=== PATIENT | female | born 1990 | race Caucasian/White ===

== ENCOUNTER 2016-09-10 13:19 | Emergency (ER) | payer OTHER ==
[~2016-09-10] VITALS: Ht 160 cm; Wt 88.1 kg
[~2016-09-10 13:19] MED LIST: AMOXICILLIN500 MG PO; BACTRIM,SEPT1 TABLET PO; ENDOCET 5-3251 EACH PO; FLUOXETINE HCL20 MG PO; IBUPROFEN200 M1 PO; IBUPROFEN800 MG PO; MACRODANTIN100 MG PO; NOHOMEMEDS; OXCARBAZEPINE300 MG PO; PRENATAL TABLE1 EAC3 PO; VALTREX1000 MG PO; ZOFRAN ODT8 MG PO
[2016-09-10 15:15] VITALS: BP 125/92
== END 2016-09-10 15:16 | disposition home or self-care (01) ==
LOC: RME 13:19 → EME 13:19 → RME 15:16
DX: Z11.1 Encounter for screening for respiratory tuberculosis (principal)
CPT/HCPCS: 99281; 99284

== ENCOUNTER 2017-03-21 11:27 | Inpatient (IN) | payer OTHER ==
[~2017-03-21] VITALS: Ht 162.6 cm; Wt 80.8 kg
[2017-03-21 12:47] LABS: BASOPHIL (%) 0.5 % (0-1); BASOPHIL COUNT 0.1 K/uL (0-0.1); EOSINOPHIL (%) 1.3 % (0-5); EOSINOPHIL COUNT 0.1 K/uL (0-0.3); HEMATOCRIT 43.3 % (36.0-46.0); HEMOGLOBIN 14.4 G/DL (11.9-15.5); IMMATURE GRANULOCYTE (%) 0.6 % (0.0-0.7); LYMPHOCYTE (%) 24.1 % (15-42); LYMPHOCYTE COUNT 2.6 K/uL (1.0-2.8); MCH 28.1 PG (29.0-34.0); MCHC 33.3 G/DL (30.0-36.0); MCV 84.4 FL (83-99); MONOCYTE (%) 7.5 % (3-12); MONOCYTE COUNT 0.8 K/uL (0-0.8); NEUTROPHIL COUNT 7.2 K/uL (1.8-6.4); PLATELET COUNT 269 K/uL (156-360); RBC DIS.WIDTH-CV 14.3 % (11.8-14.6); RBC DIS.WIDTH-SD 44.2 % (39-53); RED BLOOD COUNT 5.13 M/uL (3.80-5.20); WHITE BLOOD COUNT 10.9 K/uL (4.1-10.2)
[2017-03-21 12:55] LABS: ALBUMIN 4.4 g/dL (3.2-4.8); CHLORIDE 109 mEq/L (99-109); POTASSIUM 5.1 mEq/L (3.7-5.4); SODIUM 138 mEq/L (136-147)
[2017-03-21 12:58] LABS: GLUCOSE 103 mg/dL (70-99); TOTAL PROTEIN 7.7 g/dL (6.4-8.3)
[2017-03-21 13:00] LABS: TOTAL BILIRUBIN 0.5 mg/dL (0.0-1.0)
[2017-03-21 13:01] LABS: ALKALINE PHOSPHATASE 80 IU/L (3-129); CREATININE 0.8 mg/dL (0.6-1.3); GFR ESTIMATE (CALCULATED) > 59 mL/min/; SERUM ETHYL ALCOHOL < 10 mg/dL
[2017-03-21 13:03] LABS: AST (GOT) 13 IU/L (2-34); UREA NITROGEN (BUN) 9 mg/dL (9-23)
[2017-03-21 13:04] LABS: ALT (GPT) 13 IU/L (3-49)
[2017-03-21 13:26] LABS: AMPHETAMINE NEGATIVE (500 ng/mL); BARBITURATES NEGATIVE (200 ng/mL); BENZODIAZEPINES NEGATIVE (150 ng/mL); BUPRENORPHINE NEGATIVE (10 ng/mL); COCAINE NEGATIVE (150 ng/mL); METHADONE NEGATIVE (200 ng/mL); METHAMPHETAMINE NEGATIVE (500 ng/mL); OPIATES (MORPHINE) NEGATIVE (100 ng/mL); OXYCODONE NEGATIVE (100 ng/mL); PHENCYCLIDINE NEGATIVE (25 ng/mL); PROPOXYPHENE NEGATIVE (300 ng/mL); THC CANNABINOIDS PRESUMPTIVE POSITIVE (50 ng/mL); TRICYCLIC ANTIDEPRESSANTS NEGATIVE (300 ng/mL)
[2017-03-21 18:07] VITALS: BP 123/73
[2017-03-22 07:35] VITALS: BP 102/59
[2017-03-22 16:00] VITALS: BP 124/68
[2017-03-23 07:32] VITALS: BP 101/71
[2017-03-23 16:23] VITALS: BP 110/76
[2017-03-24 07:47] VITALS: BP 101/51
[2017-03-24 15:38] VITALS: BP 123/71
[2017-03-25 07:24] VITALS: BP 133/86
[2017-03-25] MEDS ORDERED: FLUOXETINE HCL20 MG PO (08:54)
== END 2017-03-25 12:39 | disposition home or self-care (01) | DRG 881 ==
LOC: EME 11:27 → ENRESERV 15:00 → EDOF 15:36 → 1WEST 15:36
PROVIDERS: Emergency Medicine
DX: F32.9 Major depressive disorder, single episode, unspecified (principal); F60.3 Borderline personality disorder; S11.91XA Laceration without foreign body of unspecified part of neck, initial encounter; S71.111A Laceration without foreign body, right thigh, initial encounter; X78.9XXA Intentional self-harm by unspecified sharp object, initial encounter; F12.20 Cannabis dependence, uncomplicated; K21.9 Gastro-esophageal reflux disease without esophagitis; G43.909 Migraine, unspecified, not intractable, without status migrainosus; F17.210 Nicotine dependence, cigarettes, uncomplicated; E66.9 Obesity, unspecified; Z68.30 Body mass index [BMI] 30.0-30.9, adult
CPT/HCPCS: 80053; 84999; 85025; 90837; 97150 GO; 97165 GO; 99281; 99285; G0480